=== PATIENT | female | born 1970 | race Caucasian/White ===

== ENCOUNTER 2016-10-17 22:45 | Emergency (ER) | payer SELFPAY ==
[2016-10-17] MEDS ORDERED: KETOROLAC TROMETHAMINE 60 MG/2 ML VIAL ONE (23:16)
[2016-10-17] MEDS ORDERED: cloNIDine HCL 0.1 MG TABLET PO ONE (23:17)
--- NOTE | 2016-10-17 23:35 | ER PHYSICIAN DOCUMENTATION ---
Physician Documentation [facility] Name:Gertrude Metz Age:46 yrs Sex:Female :1970 Arrival Date:10/17/2016 Time:22:45 Bed6 Private MD: Luis Manuel Goldsmith Disposition: 10/17/16 23:20 Discharged to Home/Self Care. Impression: Hypertensive Headache. - Condition is Good. - Discharge Instructions: HIGH BLOOD PRESSURE Established Out of Control - HYPERTENSION, Established, Out of Control. - Prescriptions for Lisinopril 5 mg Oral - take 1 tablet by ORAL route once daily; 30 tablet. - Medical Reconciliation form form. - Follow up: [facility]; When: 2 - 3 days; Reason: Continuance of care. Follow up: Marisela Hines DO; When: 4- 6 days; Reason: Continuance of care. Follow up: [facility]; When: 4- 6 days; Reason: Continuance of care. - Problem is new. - Symptoms have improved. HPI: 10/17 23:00 This 46 yrs old Female presents to ER via Walk In with complaints of jm Headache, Blood Pressure Problem. 23:00 The patient complains of pain to the top of head. The patient complains of pain to the jm left occipital area and right occipital area and into shoulders. The patient describes the headache as a pressure. Onset: The symptoms/episode began/occurred today. Associated signs and symptoms: Pertinent negatives: fever, neck stiffness. Severity of symptoms: in the emergency department the pain has improved, moderately. Headache History: Denies prior headaches. Pt has noticed that her BP has been elevated all day, and now she has a WYLIE. 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 She denies any vision changes, CP, or SOB. Pt used to be on BP meds, but hasn't in a few years. . Historical: - Allergies: SULFA (SULFONAMIDES); Latex; - Home Meds: 1. None - PMHx: Hypertension; - PSHx: elbow surgery ; - Tetanus: < 10 years. - Ebola Screening: : Patient negative for fever greater than or equal to 101.5 degrees Fahrenheit, and additional compatible Ebola Virus Disease symptoms. - Immunization history: Flu Vaccine unknown. - Social history: Smoking status: Patient states was never smoker of tobacco. ROS: 23:00 Constitutional: Negative for fatigue, fever. kalen 23:00 Eyes: Negative for blurry vision, visual disturbance. 23:00 Cardiovascular: Negative for chest pain. 23:00 Respiratory: Negative for cough, shortness of breath. 23:00 Neuro: Positive for dizziness, Negative for headache, weakness. 23:00 Psych: Negative for anxiety, depression, drug dependence, alcohol dependence, auditory hallucinations. Exam: 23:00 Constitutional: The patient appears alert, awake. 23:00 Eyes: Pupils: equal, round, and reactive to light and accomodation, Extraocular movements: intact throughout. 23:00 Neck: ROM/movement: Meningeal signs: are not present, nuchal rigidity, is not appreciated. 23:00 Neuro: Mentation: is normal, Memory: is normal, Cranial nerves: grossly normal, Gait: is steady. 23:00 Psych: Behavior/mood is pleasant, cooperative, Affect is calm. Vital Signs: 23:01 BP 161 / 96; Pulse 74; Resp 20; Temp 97.8(O); Pulse Ox 95% on R/A; Weight 85.28 kg; rh Height 5 ft. 5 in. (165.10 cm); Pain 8/10; 23:34 BP 165 / 92; Pulse 75; Resp 16; Pulse Ox 96% on R/A; Pain 4/10; rh 23:01 Body Mass Index 31.28 (85.28 kg, 165.10 cm) rh MDM: 22:51 Patient medically screened. 10/18 12:39 Differential diagnosis: migraine, HTN related WYLIE. Data reviewed: vital signs, nurses kalen notes, and as a result, I will discharge patient. Counseling: I had a detailed discussion with the patient and/or guardian regarding: the historical points, exam findings, and any diagnostic results supporting the discharge/admit diagnosis, the need for outpatient follow up, with the patient's primary care provider. ED course: Pt better after meds. Will have her go on lisinopril at home 5mg and f/u w a PCP that I gave her. . Dispensed Medications: 10/17 23:15 Drug: Toradol 60 mg; {Note: ADMINISTERED BY MARIELA COOPER RN .} Route: IM; Site: right rh gluteus; 23:35 Follow up: Response: Pain is decreased rh 23:16 Drug: cloNIDine 0.1 mg; Route: PO; rh 23:35 Follow up: Response: Blood pressure is lowered rh Signatures: Luis Manuel Maloney MD MD jm Hofsess, Rachel
--- NOTE | 2016-10-17 23:35 | ER NURSING DOCUMENTATION ---
Nurse's Notes [facility] Name:Gertrude Metz Age:46 yrs Sex:Female :1970 Arrival Date:10/17/2016 Time:22:45 Bed6 Private MD: Diagnosis:Hypertensive Headache Presentation: 10/17 22:50 Acuity: SHAWN 3 22:57 Presenting complaint: Patient states: Pt states headache that feels like halo squeezing rh her head, pain began today. Also states that it feels like someone is squeezing her biceps. Transition of care: Home. 22:57 Method Of Arrival: Walk In Triage Assessment: 23:00 Headache History: The patient has had previous headaches and this one is similar to previous episodes. General: Appears in no apparent distress, Behavior is cooperative. Pain: Complains of pain in HEADACHE Pain currently is 8 out of 10 on a pain scale. Quality of pain is described as PRESSURE Pain began gradually, Also complains of no other associated symptoms. Neuro: Level of Consciousness is awake, alert, obeys commands, Oriented to person, place, time, event, Nutrition Program Instructor are equal bilaterally Speech is normal, Facial symmetry appears normal. Cardiovascular: Capillary refill < 3 seconds Chest pain is denied. Respiratory: Airway is patent. Derm: Skin is intact, is healthy with good turgor, Skin is pink, warm & dry. Historical: - Allergies: SULFA (SULFONAMIDES); Latex; - Home Meds: 1. None - PMHx: Hypertension; - PSHx: elbow surgery ; - Tetanus: < 10 years. - Ebola Screening: : Patient negative for fever greater than or equal to 101.5 degrees Fahrenheit, and additional compatible Ebola Virus Disease symptoms. - Immunization history: Flu Vaccine unknown. - Social history: Smoking status: Patient states was never smoker of tobacco. Screenin:01 Infectious Disease Risk None. Abuse screen: Denies threats or abuse. Denies injuries rh from another. Nutritional screening: No deficits noted. Assessment: 23:01 See Triage Assessment done by same RN. Vital Signs: 23:01 BP 161 / 96; Pulse 74; Resp 20; Temp 97.8(O); Pulse Ox 95% on R/A; Weight 85.28 kg; rh Height 5 ft. 5 in. (165.10 cm); Pain 8/10; 23:34 BP 165 / 92; Pulse 75; Resp 16; Pulse Ox 96% on R/A; Pain 4/10; rh 23:01 Body Mass Index 31.28 (85.28 kg, 165.10 cm) ED Course: 22:45 Notified ED Physician of patient's arrival and chief complaint. Dr. Maloney notified. rh 22:48 Patient arrived in ED. ma1 22:50 Taylor Peters is Primary Nurse. 22:50 Triage completed. 22:51 Luis Manuel Maloney MD is Attending Physician. 23:01 Valuables Remains with patient Patient has correct armband on for positive rh identification. Bed in low position. Call light in reach. Side rails up X 1. 23:19 [facility] is Referral Physician. 23:20 Marisela Hines DO is Referral Physician. kalen 23:20 [facility] is Referral Physician. kalen Administered Medications: 23:15 Drug: Toradol 60 mg; {Note: ADMINISTERED BY MARIELA COOPER RN .} Route: IM; Site: right rh gluteus; 23:35 Follow up: Response: Pain is decreased 23:16 Drug: cloNIDine 0.1 mg; Route: PO; 23:35 Follow up: Response: Blood pressure is lowered Outcome: 23:20 Discharge ordered by . 23:34 Discharged to home ambulatory. 23:34 Condition: improved 23:34 Discharge Assessment: Patient awake, alert and oriented x 3. No cognitive and/or functional deficits noted. Patient verbalized understanding of disposition instructions. 23:34 Discharge instructions given to patient, Instructed on discharge instructions, follow up and referral plans. medication usage, Demonstrated understanding of instructions, medications, Prescriptions given X 1. 23:35 Patient left the ED. 10/18 09:42 Discharge F/U Call: Spoke with: patient. Did your discharge instructions answer all ke of your questions? yes Overall Care on a scale of 1-10 with 10 being the best care, you rate our care as: the rating of 10. Other comments: Most amazing ER visit she's ever had - care was professional and expeditious. Signatures: Luis Manuel Maloney MD MD jm Hofsess, Rachel Archana Saucedo RN RN ke Addison, Melissa ma
== END 2016-10-17 23:35 | disposition home or self-care (01) ==
LOC: ER 22:45
DX: R51 Headache (principal); I10 Essential (primary) hypertension; R42 Dizziness and giddiness
CPT/HCPCS: 96372; 99283; J1885